=== PATIENT | female | born 1990 | race Caucasian/White ===

== ENCOUNTER 2016-06-17 12:25 | Emergency (ER) | payer OTHER ==
[~2016-06-17 12:25] MED LIST: ALBUTEROL17 GM; AUGMENTIN 875-11 TAB PO; DEPO-PROVER150 MG/ML; ERYTHROMYCIN; FLONASE16 GM; MUCINEX600 MG PO; NORCO 5/325 TAB1 TAB PO; SINGULAIR5 MG
[2016-06-17] MEDS ORDERED: FOLIC ACID1 M1 PO (12:38)
[2016-06-17] MEDS ORDERED: LAMICTAL200 M2 PO (12:38)
[2016-06-17] MEDS ORDERED: ALLEGRA ALLERG180 M1 PO (12:39)
[2016-06-17 13:13] LABS: BASO % 0.3 % (0-2); EOS % 1.8 % (0-7); EOSINOPHIL ABSOLUTE COUNT 0.1 tho/cmm (0.0-0.7); HCT-HEMATOCRIT 44.2 % (34.0-49.0); HGB-HEMOGLOBIN 15.4 gm/dl (12.0-15.5); IMMATURE GRANULOCYTES ABSOLUTE 0.02 tho/cmm (0-0.03); IMMATURE GRANULOCYTES PERCENT 0.3 % (0-0.3); LYMPH % 37.5 % (20-45); LYMPH ABSOLUTE COUNT 2.9 tho/cmm (0.8-4.5); MCH (MEAN CORPUSCULAR HGB) 30.1 pg (28.0-32.0); MCHC MEAN CORPUSCULAR HGB CONC 34.8 % (32.0-36.0); MCV (MEAN CELL VOLUME) 86.3 fl (82.0-96.0); MONOCYTE ABSOLUTE COUNT 0.5 tho/cmm (0.0-1.2); NEUTROPHIL ABSOLUTE COUNT 4.1 tho/cmm (1.6-8.0); NEUTROPHIL-AUTOMATED 4.1 tho/cmm (1.6-8.0); NEUTROPHILS % 53.1 % (40-80); PLATELET COUNT 219 tho/cmm (150-450); RED BLOOD COUNT 5.12 mil/cmm (4.00-5.20); RED CELL DISTRIBUTION WIDTH 12.3 % (12.4-16.4); WHITE BLOOD COUNT 7.8 tho/cmm (4.0-10.0)
[2016-06-17 13:29] LABS: PREGNANCY-SERUM NEGATIVE (NEGATIVE)
[2016-06-17 13:36] LABS: BLOOD UREA NITROGEN 14 mg/dl (6-24); CALCIUM 8.9 mg/dl (8.5-10.5); CARBON DIOXIDE-VENOUS 24 mmol/L (22-32); CHLORIDE 109 mmol/l (96-110); CREATININE 0.86 mg/dl (0.50-1.10); GLUCOSE 89 mg/dL (70-110); SODIUM 139 mmol/L (135-145); eGFR VALUE FOR BLACK >90 mL/Min
[2016-06-17 13:37] LABS: ANION GAP 10 mmol/L (0-20); C-REACTIVE PROTEIN <0.3 mg/dl (0-0.9); POTASSIUM 4.3 mmol/L (3.7-5.1)
[2016-06-17 15:29] LABS: URINE BILIRUBIN NEGATIVE (NEG); URINE BLOOD NEGATIVE (NEG); URINE GLUCOSE (UA) NEGATIVE (NEG); URINE KETONE NEGATIVE (NEG); URINE LEUKOCYTE ESTERASE NEGATIVE (NEG); URINE NITRITE NEGATIVE (NEG); URINE PH 6.5 (5.0-8.0); URINE PROTEIN NEGATIVE (NEG); URINE SPECIFIC GRAVITY 1.005 (1.003-1.030)
[2016-06-17] MEDS ORDERED: NORCO 5-325 TA1 EACH PO (15:30)
[2016-06-17 15:31] LABS: URINE APPEARANCE CLEAR; URINE COLOR COLORLESS
[2016-06-17] MEDS ORDERED: COMPAZINE10 MG PO (15:40)
== END 2016-06-17 15:52 ==
LOC: EDMED 12:25
PROVIDERS: Emergency Medicine
DX: N83.201 Unspecified ovarian cyst, right side (principal); J45.909 Unspecified asthma, uncomplicated; G40.909 Epilepsy, unspecified, not intractable, without status epilepticus; Z90.89 Acquired absence of other organs; Z79.899 Other long term (current) drug therapy
CPT/HCPCS: J1885; J2270; J7030